=== PATIENT | female | born 1985 | race Caucasian/White ===

== ENCOUNTER 2016-09-10 06:30 | Inpatient (IN) | payer BC ==
[2016-09-10] MEDS ORDERED: ELECTROLYTE-148 SOLN 1,000 ML IV SCH (07:30)
[2016-09-10 07:58] VITALS: BMI 27.8
--- NOTE | 2016-09-10 08:26 | HP ---
Past Medical History - Admission Chief Complaint: Here for repeat c section History of Present Illness: 31 y/o with SIUP at 39+ weeks gestation here for repeat section. uncomplicated. Pt with h/o c section and history of pre eclampsia with last Pt has been on ASA 81mg daily and followed by MFM. No signs/sx pre eclampsia. History Source: Patient, Medical Record Limitations to Obtaining History: No Limitations - Past Medical History Cardiovascular: Yes: HTN (pre Eclampsia with prior ) Pulmonary: No: Asthma Gastrointestinal: No: GERD Reproductive: No: Ectopic , Endometriosis, Fibroids, PID ...: 2 ...Para: 1 ...Term: 1 ...: 0 ...Spon : 0 ...Induced : 0 ...Multiple Gestation: 0 ...LMP: 12/02/15 ...EDC by Sono: 09/12/16 Heme/Onc: No: Anemia Infectious Disease: No: HIV, STD's Psych: No: Bipolar, Depression Endocrine: No: Diabetes Mellitus, Hyperthyroidism, Hypothyroidism - Past Surgical History Past Surgical History: Yes: Breast Biopsy, Hx Myomectomy: No Hx Transabdominal Cerclage: No - Smoking History Smoking history: Never smoked Have you smoked in the past 12 months: No Aproximately how many cigarettes per day: 0 - Alcohol/Substance Use Hx Alcohol Use: No History of Substance Use: reports: None - Social History Usual Living Arrangement: Yes: With Spouse ADL: Independent History of Recent Travel: No Home Medications - Allergies Allergies/Adverse Reactions: Allergies Allergy/AdvReac Type Severity Reaction Status Date / Time codeine Allergy Intermediate Swelling Verified 08/28/16 16:00 - Home Medications Home Medications: Ambulatory Orders Vit #108/Iron/FA [ One Tablet] 1 each PO DAILY 03/01/14 Aspirin [[place] Aspirin] 81 mg PO DAILY 07/31/16 Family Disease History - Family Disease History Family Disease History: Other: Mother (hypertension) Review of Systems - Review of Systems Constitutional: reports: No Symptoms Eyes: reports: No Symptoms HENT: reports: No Symptoms Neck: reports: No Symptoms Cardiovascular: reports: No Symptoms Respiratory: reports: No Symptoms Gastrointestinal: reports: No Symptoms Genitourinary: reports: No Symptoms Breasts: reports: No Symptoms Reported Musculoskeletal: reports: No Symptoms Integumentary: reports: No Symptoms Neurological: reports: No Symptoms Endocrine: reports: No Symptoms Hematology/Lymphatic: reports: No Symptoms Psychiatric: reports: No Symptoms Physical Exam - Maternity Vital Signs: Vital Signs Temperature 97.8 F 09/10/16 07:50 Pulse Rate 95 H 09/10/16 07:50 Respiratory Rate 14 09/10/16 07:50 Blood Pressure 139/84 09/10/16 07:50 O2 Sat by Pulse Oximetry (%) Constitutional: Yes: Well Nourished, No Distress, Calm HENT: Yes: Atraumatic, Normocephalic Neck: Yes: Supple, Trachea Midline Cardiovascular: Yes: Regular Rate and Rhythm Lungs: Clear to auscultation - Abdominal Exam/OB Fundal Height: 40 Number of Fetuses: Single Presentation: Vertex Monitor Mode: External Heart Rate (range): 145 Accelerations: Uniform Decelerations: None - Vaginal Exam/OB Vaginal Bleediing: No Amniotic Membrane Status: Intact - Physical Exam Extremities: Yes: WNL Psychiatric: Yes: Alert, Oriented Hemorrhage Risk Assessment - Risk Factors Medium Risk Factors: Yes: Prior , uterine surgery,or multiple laparotomies High Risk Factors: Yes: None Risk Score: 1 Risk Level: Medium Risk Problem List - Problems (1) Term Code(s): Z34.80 - ENCOUNTER FOR SUPRVSN OF NORMAL , UNSP TRIMESTER (2) History of delivery Code(s): Z98.89 - OTHER SPECIFIED POSTPROCEDURAL STATES * DO NOT USE * Assessment/Plan 31 y/o with SIUP at 39+ weeks gestation, here for repeat section - FHTS cat 1 - nursing/anesthesia/nursery aware - IV started, NPO, SCDs - Ancef preop
[2016-09-10] MEDS ORDERED: TUBERCULIN PPD 5 TU/0.1ML SYRINGE (IN PATIENT USE ONLY) ID ONE (09:00)
[2016-09-10] MEDS ORDERED: METHYLERGONOVINE MALEATE 0.2 MG/1 ML AMP IM PRN (09:20)
[2016-09-10] MEDS ORDERED: SENNOSIDES/DOCUSATE COMBO (SENNA PLUS) TABLET (UD) PO PRN (09:20)
[2016-09-10] MEDS ORDERED: oxyCODONE HCL 5 MG TABLET PO PRN ×2 (09:20)
--- NOTE | 2016-09-10 09:22 | OP ---
Operative Note - Note: Operative Date: 09/10/16 Operation: Repeat low transverse section Findings: normal bilateral tubes/ovaries Post-Operative Diagnosis: Same as Pre-op Surgeon: Digna Mckinley Occupational Therapy Teacher: Leilani Mccrary Anesthesiologist/BASKETBALL SCOUT: Anish Kelley Anesthesia: Spinal Specimens Removed: placenta, cord blood samples Estimated Blood Loss (mls): 600 Operative Report Dictated: Yes
--- NOTE | 2016-09-10 09:23 | PN ---
Delivery - Delivery Section: Repeat, Low Flap Transverse Type of Anesthesia: Spinal EBL (cc): 600 Delivery, Single - Stages of Labor Date of Delivery: 09/10/16 Date Placenta Delivered: 09/10/16 Placenta: Yes: Manual Removal - Condition of Infant Distribution Tech/Palm Gatherer Present: Yes Name: Groening,Lilo Gender: Female Position: Left, OA - 1 Minute Total Score: 8 5 Minutes Total Score: 9 - Feeding Plan Initial Plan: Exclusive throughout hospitalization Remarks - Remarks Remarks: Unremarkable repeat low transverse section see operative report for full details
[2016-09-10] MEDS ORDERED: OXYTOCIN 20 UNITS in 0.9% NS 1,000 ML IV SCH (09:30)
[2016-09-10] MEDS ORDERED: ONDANSETRON 4 MG/2 ML VIAL IVPUSH PRN (09:32)
[2016-09-10] MEDS ORDERED: IBUPROFEN 800 MG/8 ML IJ IVPB PRN (09:32)
[2016-09-10] MEDS: IBUPROFEN 800 MG/8 ML IJ IVPB PRN ×2 (10:35→22:09)
[2016-09-10] MEDS ORDERED: SODIUM CHLORIDE 1,000 ML IV ONE (17:53)
--- NOTE | 2016-09-10 18:05 | RAPID ---
Physical Examination Vital Signs: Vital Signs Temperature 98.4 F 09/10/16 14:00 Pulse Rate 106 H 09/10/16 14:00 Respiratory Rate 16 09/10/16 17:00 Blood Pressure 134/85 09/10/16 14:00 O2 Sat by Pulse Oximetry (%) 100 09/10/16 10:15 Findings/Remarks: OSTOMY CARE NURSE called for dizzyness and diaphoresis that started suddenly as pt was . pt was assessed and BP taken Systolic 60's. Pt was assessed and found to diaphoretic and pale. stating she is feeling dizzy. heart sounds present, lungs CTA B/L anteriorly. surgical incision assessed was intact mildly tender, liat in place no oozing. gravid uterus firm to the umbilicus. BS present as IVF running pt appeared to be more stable, stated dizzyness has resolved -1L NS bolus initiated. repeat BP 107/50 HR 103 o2 sat 97% on nonrebreather, frequent BP monitoring -fs 83 -full set of labs sent -call placed out to PMD
[2016-09-10 19:18] LABS: BASOPHIL 0.2 % (0-2.0); EOSINOPHIL 0.2 % (0-4.5); MCH 27.5 pg (25.7-33.7); MEAN CELL VOLUME 83.5 fl (80-96); MEAN PLT VOLUME 9.1 fl (7.5-11.1); NEUTROPHILS 84.9 % (42.8-82.8); PLATELET COUNT 147 K/MM3 (134-434); RDW 14.9 % (11.6-15.6); WHITE BLOOD COUNT 12.7 K/mm3 (4.0-10.0)
[2016-09-10 19:52] LABS: ALBUMIN 1.7 g/dl (3.4-5.0); ALK PHOS 68 U/L (45-117); ANION GAP 11 (8-16); BILIRUBIN,TOTAL 0.9 mg/dL (0.2-1.0); CO2 21 mmol/L (21-32); CREATININE 0.4 mg/dL (0.55-1.02); GLUCOSE,RANDOM 87 mg/dL (74-106); MAGNESIUM 1.6 mg/dL (1.8-2.4); PHOSPHOROUS 2.7 mg/dL (2.5-4.9); SGOT/AST 17 U/L (15-37); SGPT/ALT 9 U/L (12-78); TOT PROT 4.1 g/dl (6.4-8.2)
[2016-09-11] MEDS ORDERED: MAGNESIUM SULF 50% (8.12 MEQ/2 ML-1 GM VIAL) IVPB ONE (02:30)
[2016-09-11 07:26] LABS: BASOPHIL 0.2 % (0-2.0); EOSINOPHIL 0.3 % (0-4.5); MCH 27.9 pg (25.7-33.7); MEAN CELL VOLUME 84.5 fl (80-96); MEAN PLT VOLUME 9.2 fl (7.5-11.1); NEUTROPHILS 83.1 % (42.8-82.8); PLATELET COUNT 144 K/MM3 (134-434); WHITE BLOOD COUNT 12.7 K/mm3 (4.0-10.0)
--- NOTE | 2016-09-11 08:55 | PN ---
Post Progress Note Type of Delivery: Repeat C/S Vital Signs: Vital Signs Temperature 98.8 F 09/11/16 05:55 Pulse Rate 102 H 09/11/16 05:55 Respiratory Rate 20 09/11/16 05:55 Blood Pressure 126/73 09/11/16 05:55 O2 Sat by Pulse Oximetry (%) 98 09/10/16 21:00 Breast Exam: Yes: Soft Uterus: Yes: Fundus Firm Incision: Yes: Dressing dry and intact Abdomen/GI: Yes: Abdomen soft Lochia: Yes: Rubra Lochia, amount: Small Extremities: Yes: Calves non-tender Activity: Ambulating - Labs Labs: CBC WBC 12.7 K/mm3 (4.0-10.0) H 09/11/16 06:30 Corrected WBC (auto) Cancelled 09/10/16 18:00 RBC 2.90 M/mm3 (3.60-5.2) L 09/11/16 06:30 Hgb 8.1 GM/dL (10.7-15.3) L 09/11/16 06:30 Hct 24.5 % (32.4-45.2) L 09/11/16 06:30 MCV 84.5 fl (80-96) 09/11/16 06:30 MCHC 33.0 g/dl (32.0-36.0) 09/11/16 06:30 RDW 15.0 % (11.6-15.6) 09/11/16 06:30 Plt Count 144 K/MM3 (134-434) 09/11/16 06:30 MPV 9.2 fl (7.5-11.1) 09/11/16 06:30 Add Manual Diff Cancelled 09/10/16 18:00 Neutrophils % 83.1 % (42.8-82.8) H 09/11/16 06:30 Lymphocytes % 10.7 % (8-40) D 09/11/16 06:30 Monocytes % 5.7 % (3.8-10.2) 09/11/16 06:30 Eosinophils % 0.3 % (0-4.5) 09/11/16 06:30 Basophils % 0.2 % (0-2.0) 09/11/16 06:30 Differential Comment Cancelled 09/10/16 18:00 Smudge Cells Cancelled 09/10/16 18:00 Platelet Estimate Cancelled 09/10/16 18:00 Platelet Comment Cancelled 09/10/16 18:00 Platelet Comment Cancelled 09/10/16 18:00 Normal RBC Morphology Cancelled 09/10/16 18:00 RBC Morphology Cancelled 09/10/16 18:00 Problem List - Problems (1) Status post repeat low transverse section Code(s): Z98.89 - OTHER SPECIFIED POSTPROCEDURAL STATES * DO NOT USE * Assessment/Plan Status post repeat Ambulation Analgesia PRN pain Continue Post op care
--- NOTE | 2016-09-11 09:15 | PN ---
Progress Note (short form) - Note Progress Note: Anesthesia POD#1 S/P Repeat under spinal anesthesia and DM PATIENT had an incidence of hypotension yesterday.Recovered with iv fluids. No pain,no N/V today.Legs had full strength, no headache. VSS No complications to anesthesia seen. Evelin Scherer MD.
[2016-09-11] MEDS ORDERED: BISACODYL 10 MG SUPP.RECT RC PRN (09:20)
[2016-09-11] MEDS ORDERED: INFLUENZA VACCINE 45 MCG/0.5 ML (MDV 16-17) IM ONE (10:00)
[2016-09-11] MEDS ORDERED: VACCINE 60 MCG/0.5 ML (P/F DISP.SYRIN 16-17) IM ONE (10:00)
[2016-09-11] MEDS ORDERED: DIPHTH,PERTUSS(ACELL),TET 0.5 ML DISP.SYRIN IM ONE (10:00)
[2016-09-11] MEDS: PRENATAL VITAMINS W/ FOLIC ACID TABLET (FP) PO SCH (10:09)
[2016-09-11] MEDS: ACETAMINOPHEN 325 MG TABLET (FP) PO PRN (12:33)
[2016-09-11] MEDS: IBUPROFEN 600 MG TABLET (FP) PO PRN (12:34)
[2016-09-11] MEDS: SIMETHICONE 80 MG TAB.CHEW (FP) PO PRN (12:34)
[2016-09-12] MEDS: SIMETHICONE 80 MG TAB.CHEW (FP) PO PRN ×2 (01:14→23:01)
[2016-09-12] MEDS: ACETAMINOPHEN 325 MG TABLET (FP) PO PRN ×2 (01:15→23:00)
[2016-09-12] MEDS: IBUPROFEN 600 MG TABLET (FP) PO PRN ×2 (01:15→22:59)
--- NOTE | 2016-09-12 10:59 | PN ---
Progress Note (SOAP) - Subjective Chief Complaint: Pt without complaints - Current Medications Current Medications: Active Medications Acetaminophen (Tylenol -) 650 mg PO Q4H PRN PRN Reason: FEVER OR PAIN Last Admin: 09/12/16 01:15 Dose: 650 mg Bisacodyl (Dulcolax Suppository -) 10 mg RC PRN PRN PRN Reason: CONSTIPATION Diphenhydramine HCl (Benadryl Injection -) 25 mg IVPUSH Q4H PRN PRN Reason: itching Oxytocin/Sodium Chloride (Normal Saline+20 Units Oxytocin -) 1,000 mls @ 125 mls/hr IV ASDIR DINO Last Admin: 09/10/16 08:45 Dose: 125 mls/hr Ibuprofen (Motrin -) 600 mg PO Q4H PRN PRN Reason: PAIN Last Admin: 09/12/16 01:15 Dose: 600 mg Ibuprofen (Caldolor Injection -) 800 mg IVPB Q8H PRN PRN Reason: PAIN OR FEVER Last Admin: 09/10/16 22:09 Dose: 800 mg Methylergonovine Maleate (Methergine Injection -) 0.2 mg IM Q4H PRN PRN Reason: Excessive Bleeding (L&D) Oxycodone HCl (Roxicodone -) 5 mg PO Q4H PRN PRN Reason: PAIN LEVEL 1-5 Oxycodone HCl (Roxicodone -) 10 mg PO Q4H PRN PRN Reason: PAIN LEVEL 6-10 Multivit/Folic Acid/Iron ( Vitamins (Sjr) -) 1 tab PO DAILY [facility] Last Admin: 09/11/16 10:09 Dose: 1 tab Senna/Docusate Sodium (Pericolace -) 2 tablet PO HS PRN PRN Reason: CONSTIPATION Last Admin: 09/12/16 01:14 Dose: 2 tablet Simethicone (Mylicon -) 80 mg PO Q4H PRN PRN Reason: GAS Last Admin: 09/12/16 01:14 Dose: 80 mg - Objective Vital Signs: Vital Signs Temperature 98.5 F 09/11/16 21:41 Pulse Rate 103 H 09/11/16 21:41 Respiratory Rate 20 09/11/16 21:41 Blood Pressure 133/70 09/11/16 21:41 O2 Sat by Pulse Oximetry (%) 98 09/10/16 21:00 Constitutional: Yes: Well Nourished, No Distress Cardiovascular: Yes: WNL Gastrointestinal: Yes: WNL, Normal Bowel Sounds, Soft ....Post : Yes: Uterus firm, Uterus non-tender Breast(s): Yes: WNL Musculoskeletal: Yes: WNL Extremities: Yes: WNL Edema: No Wound/Incision: Yes: Clean/Dry, Well Approximated Neurological: Yes: WNL, Alert, Oriented Labs Lab Results: CBC, BMP 09/11/16 06:30 09/10/16 19:00 Problem List - Problems (1) History of delivery Code(s): Z98.89 - OTHER SPECIFIED POSTPROCEDURAL STATES * DO NOT USE * Assessment/Plan POD 2 ' SP CS Plan OOb Percocet
[2016-09-12] MEDS: PRENATAL VITAMINS W/ FOLIC ACID TABLET (FP) PO SCH (11:16)
[2016-09-12 22:09] VITALS: PULSE 106
[2016-09-13] MEDS: SIMETHICONE 80 MG TAB.CHEW (FP) PO PRN (07:35)
[2016-09-13] MEDS: IBUPROFEN 600 MG TABLET (FP) PO PRN (07:35)
[2016-09-13] MEDS: ACETAMINOPHEN 325 MG TABLET (FP) PO PRN (07:36)
[2016-09-13 08:39] LABS: BASOPHIL 0.4 % (0-2.0); EOSINOPHIL 1.8 % (0-4.5); MCH 28.4 pg (25.7-33.7); MCHC 33.4 g/dl (32.0-36.0); MEAN CELL VOLUME 84.9 fl (80-96); MEAN PLT VOLUME 8.2 fl (7.5-11.1); NEUTROPHILS 80.3 % (42.8-82.8); PLATELET COUNT 191 K/MM3 (134-434); RDW 15.1 % (11.6-15.6); WHITE BLOOD COUNT 10.4 K/mm3 (4.0-10.0)
[2016-09-13] MEDS: PRENATAL VITAMINS W/ FOLIC ACID TABLET (FP) PO SCH (09:12)
[2016-09-13 10:32] VITALS: BP 133/77; TEMP 98.9
--- NOTE | 2016-09-15 14:01 | PATH ---
Surgical Pathology Report Patient Name: LUCIA GARCIA [facility]. Rec. #: [id number] /Age/Gender: 1985 (Age: 31) / F Account: [id number] Location: [facility] OBS/CELLOPHANE PRESS OPERATOR Taken: 09/10/2016 Received: 09/11/2016 Reported: 09/15/2016 Physicians: Digna Mckinley M.D. Specimen(s) Received PLACENTA Clinical History 39.5 weeks IUP, previous c/section x1 Repeat c/section Final Diagnosis PLACENTA, DELIVERY: FOCALLY DISRUPTED, SMALL FOR GESTATIONAL AGE (< 400 GM), THIRD TRIMESTER PLACENTA WITH MILD TO MODERATE INCREASE IN PREVILLOUS, PERIVILLOUS, AND PRECHORIONIC FIBRIN DEPOSITION, THREE VESSEL UMBILICAL CORD, AND UNREMARKABLE PLACENTAL MEMBRANES. Electronically Signed Silver Sullivan M.D. Gross Description The specimen is received fresh labeled placenta and is a 298 gram, 14.5 x 13.0 x 1.7 cm placenta with attached membranes and umbilical cord. The attached membranes are hanks, translucent with focal opacities and insert marginally. The umbilical cord measures 25 cm in length and averages 0.8 cm in diameter. The cord inserts eccentrically, 4 cm to the nearest margin. No true knots or strictures are identified. Cut surface of the umbilical cord reveals 3 vessels. The surface is mansfield-blue with fibrin deposition and small caliber vessels. The maternal surface is red-brown with focal defects. Sectioning reveals red-brown, spongy parenchyma. No focal lesions are identified. Collar Stitcher sections are submitted in three cassettes as follows: 1- membrane rolls and umbilical cord; 2-3- full thickness sections of placenta. 09/12/201609/12/2016
--- NOTE | 2016-09-18 12:27 | OP ---
DATE OF OPERATION: 09/10/2016 PREOPERATIVE DIAGNOSIS: Prior section, declined trial of labor after . POSTOPERATIVE DIAGNOSIS: Prior section, declined trial of labor after . PROCEDURE: Repeat low transverse section. SURGEON: Digna Workman MD SUPERVISOR CLOTH WINDING: Leilani Mccrary MD ANESTHESIA: Spinal. ANESTHESIOLOGIST: Anish Kelley MD ESTIMATED BLOOD LOSS: 600 mL. SPECIMENS: Included placenta and cord blood sent to the blood bank for evaluation. COMPLICATIONS: None. DISPOSITION: Stable to the PACU. DRAINS: Included Neal catheter draining clear yellow urine. FINDINGS: Included normal bilateral tubes and ovaries, gravid uterus, and otherwise normal intrapelvic female anatomy. BRIEF HISTORY AND PROCEDURE: Patient is a 31-year-old -0-0-1 female who was admitted to [facility] on September 10, 2016, for a scheduled repeat low transverse section. Consents were signed for the surgery upon admission, and the patient was then taken back to the operating room, where she was given spinal anesthesia by Dr. Anish Kelley without difficulty. She was placed in the dorsal supine position and prepped and draped in the usual sterile fashion, including placing a Neal catheter under sterile conditions. Next, a hard time- out was performed. A Pfannenstiel skin incision was created in the skin and carried to the underlying layer of rectus fascia with the Bovie. The rectus fascia was then incised on either side of the midline with the Bovie, and the incision was carried in superolateral direction with the Bovie. The superior aspect of the fascia was tented upwards and dissected off the underlying layer of rectus muscle with the Bovie. The same was repeated on the inferior aspect of the fascia. The midline of the rectus muscle was identified and sharply. The peritoneum was identified and entered sharply to allow for adequate room for delivery. The bladder appeared to be adhered to the anterior portion of the uterus from a prior section. So, bladder flap was then created. The bladder blade was readjusted to protect the bladder, and then a transverse incision was created in the uterus with the scalpel. This incision was carried in the superolateral direction bluntly. The infant was then delivered from the LOT position without difficulty. A double nuchal cord, which was loose, was noted upon delivery. which was then reduced before delivery of the body. The remainder of the infant including the shoulders and the remainder of the delivered with ease. The cord was clamped twice and cut in between. The was taken over to the warmer to be assessed by the neonatology staff, where the scores were 8 and 9. The placenta was then delivered manually. The uterus was exteriorized from the abdomen, inspected, and cleared of all blood clot, amniotic membrane, and debris with a dry lap sponge. The hysterotomy was reapproximated in a double-layer closure using 1 Vicryl suture in a running locked fashion. Excellent hemostasis was achieved. Bilateral tubes and ovaries were inspected and noted to be normal. The posterior cul-se-sac was suctioned. The uterus was placed back in the abdomen. Bilateral gutters were inspected and cleared of all debris. Next, the hysterotomy was then reevaluated and noted to be hemostatic. The peritoneum was reapproximated using chromic suture in a running fashion. The musculature was reapproximated in single suture using chromic suture. The fascia was then reapproximated using 1 Vicryl in a running fashion. The subcutaneous tissue was irrigated and reapproximated using Biosyn suture. The skin was reapproximated subcuticularly using 3-0 Vicryl suture, and Steri-Strips were applied. The patient tolerated the procedure well and was recovering in stable condition in the unit after the procedure. Sponge, needle and instrument count were reported to be correct. DIGNA WORKMAN DO /[id number] MTDD
--- NOTE | 2016-12-05 16:09 | DS ---
DATE OF ADMISSION: 09/10/2016 DATE OF DISCHARGE: 09/13/2016 ADMITTING DIAGNOSIS: Full term intrauterine and prior section. ADMITTING PHYSICIAN: Digna Mckinley M.D. PROCEDURES DURING ADMISSION: Included a repeat section which was completed without difficulty. Please see full operative report for details of the procedure. CONSULTATION DURING ADMISSION: Consultations during admission including anesthesia consult for anesthesia placement during surgery as well as hospital consult on postoperative day zero. LABORATORY UPON DISCHARGE: Include a white blood cell count of 10.4, hemoglobin 8.4, platelet count 191. Vital signs upon day of discharge include temperature 98.9, heart rate 106, blood pressure 133/77, and respiratory rate of 20. BRIEF HOSPITAL COURSE: Patient is a 31-year-old female who was admitted to [facility] on September 10, 2016, at approximately 39 weeks' gestation. Her scheduled repeat . Patient's had been uncomplicated up until that point. The patient underwent a normal uncomplicated repeat section on that date; please see operative report for full details of procedure. On postoperative day 0, the patient did have an episode of near syncope with diaphoresis during an episode of . Hospitalist consultation was called and completed by Dr. Jennie Godoy. Workup for this condition was negative, and the patient recovered well and had no further episodes during her course. On postoperative day 1, the patient was doing well. She is ambulating without difficulty. Her vital signs were stable and her hemoglobin as 8.1. On post operative day 2, the patient was doing well and had no complaints. She was tolerating regular diet, ambulating without difficulty, voiding, passing flatus, and tolerating her oral pain medications. The patient was then discharged home in stable condition on postoperative day 3 with instructions to call with any fever greater than 101, severe pain uncontrolled with medications, heavy vaginal bleeding, or any other questions or concerns. The patient was discharged home with prescription for Percocet for pain control 5/325 mg with instructions to take 1 tablet by mouth every 4-6 hours as needed for pain. Patient also instructed to over the counter Motrin and Tylenol as needed for mild pain. Patient stated that she understood her discharge instructions on September 13, 2016, and was discharged home in stable condition on that date. DIGNA MCKINLEY DO /[id number] MTDD
== END 2016-09-13 11:30 | disposition home or self-care (01) | DRG 766 ==
LOC: JLDR 06:30 → J3W 14:00
PROVIDERS: ADMIT Obstetrics & Gynecology; ATTEND Obstetrics & Gynecology
PROC: 10D00Z1 Extraction of Products of Conception, Low, Open Approach (ICD-10-PCS; principal; 2016-09-10)
DX: O34.211 Maternal care for low transverse scar from previous cesarean delivery (principal); I95.9 Hypotension, unspecified; Z3A.39 39 weeks gestation of pregnancy; Z37.0 Single live birth
CPT/HCPCS: 36415; 80053; 83735; 84100; 85025; 85610; 88307-TC; 90661; 90715; G0008